=== PATIENT | male | born 1955 | race Caucasian/White ===

== ENCOUNTER → 2017-11-16 | Outpatient (CLI) | payer OTHER ==
[~2017-11-16] MED LIST: CALC1CAP8 PO; CHOL400T10 PO; ECHI125C PO; GLUC1CAP18 PO; MULT-658 PO; NIAC500T9 PO; TAMS-11 PO
== END | disposition home or self-care (01) ==
LOC: STAR 08:41
PROVIDERS: ATTEND Surgery
DX: Z01.818 Encounter for other preprocedural examination (principal); K40.90 Unilateral inguinal hernia, without obstruction or gangrene, not specified as recurrent
CPT/HCPCS: 93005

== ENCOUNTER 2017-11-28 06:48 | Day surgery (SDC) | payer OTHER ==
[~2017-11-28] VITALS: Ht 172.7 cm; Wt 70.9 kg
[~2017-11-28 06:48] MED LIST changes: +BUPIVACAINE/PF 0.5% ONE
[2017-11-28] MEDS ORDERED: LACTATED RINGERS 1,000 ML IV SCH (07:38)
[2017-11-28] MEDS ORDERED: LIDOCAINE-MPF 1%, 2ML INFIL ONE (08:00)
[2017-11-28] MEDS ORDERED: GABAPENTIN 300 MG CAPSULE PO ONE (08:00)
[2017-11-28] MEDS ORDERED: ACETAMINOPHEN 500 MG TABLET PO ONE (08:00)
[2017-11-28] MEDS ORDERED: FAMOTIDINE 20 MG TABLET PO ONE (08:00)
[2017-11-28 08:01] VITALS: BP 130/85
[2017-11-28] MEDS ORDERED: FENTANYL PF 100 MCG/2ML ONE ×2 (08:23→10:29)
[2017-11-28] MEDS ORDERED: GLYCOPYRROLATE 0.2MG/1ML, 5ML ONE (08:51)
[2017-11-28] MEDS ORDERED: KETAMINE 10 MG/ML, 20ML ONE (08:51)
[2017-11-28] MEDS ORDERED: NEOSTIGMINE 1 MG/ML, 10ML ONE (08:51)
[2017-11-28] MEDS ORDERED: ONDANSETRON 2MG/ML, 2ML ONE (08:51)
[2017-11-28] MEDS ORDERED: BUPIVACAINE/PF-EPI 0.5% 1:200K IM ONE (09:21)
[2017-11-28] MEDS ORDERED: CEFAZOLIN 1,000 MG ONE ×2 (09:29→09:30)
[2017-11-28] MEDS ORDERED: LIDOCAINE-MPF 2% ,5ML ONE (09:30)
[2017-11-28] MEDS ORDERED: ROCURONIUM 10MG/ML,5ML ONE (09:30)
[2017-11-28] MEDS ORDERED: OXYcodone 5 MG/5 ML ORAL.SOL UDC PO PRN (09:30)
[2017-11-28] MEDS ORDERED: DEXAMETHASONE 4 MG/ML, 1ML ONE ×2 (09:30)
[2017-11-28] MEDS ORDERED: SODIUM CHLORIDE 0.9% PF 10ML ONE (09:30)
[2017-11-28] MEDS ORDERED: SUCCINYLCHOLINE 20 MG/ML, 10ML ONE (09:30)
[2017-11-28] MEDS ORDERED: PROPOFOL 10 MG/ML, 20ML ONE (09:30)
[2017-11-28] MEDS ORDERED: PROMETHAZINE 25 MG/ML, 1ML IV PRN (09:30)
[2017-11-28] MEDS ORDERED: OXYcodone 5 MG/5 ML ORAL.SOL UDC ONE (10:29)
[2017-11-28] MEDS: FENTANYL PF 100 MCG/2ML IV PRN ×2 (10:36→10:47)
== END 2017-11-28 12:35 ==
LOC: OUT 06:48
PROVIDERS: ATTEND Surgery
DX: K40.90 Unilateral inguinal hernia, without obstruction or gangrene, not specified as recurrent (principal); E78.5 Hyperlipidemia, unspecified; G47.33 Obstructive sleep apnea (adult) (pediatric); Z72.89 Other problems related to lifestyle; Z87.891 Personal history of nicotine dependence
CPT/HCPCS: 49650; C1781; J0330; J0690; J1100; J2405; J2704; J2710; J3010; J3490